=== PATIENT | male | born 1975 | race Caucasian/White ===

== ENCOUNTER → 2016-08-20 | Outpatient (CLI) | payer OTHER | LOC: CIMAGING 17:52 | PROVIDERS: ATTEND Family Medicine | DX: J44.0 Chronic obstructive pulmonary disease with (acute) lower respiratory infection (principal); Z72.0 Tobacco use | CPT/HCPCS: 71020-PO ==

== ENCOUNTER → 2016-09-09 | Outpatient (CLI) | payer OTHER | LOC: CIMAGING 14:13 | PROVIDERS: ATTEND Family Medicine | DX: R93.8 Abnormal findings on diagnostic imaging of other specified body structures (principal); R07.81 Pleurodynia; J43.2 Centrilobular emphysema; F17.200 Nicotine dependence, unspecified, uncomplicated | CPT/HCPCS: 71250-PO ==